=== PATIENT | female | born 1965 | race Caucasian/White ===

== ENCOUNTER 2017-05-29 05:03 | Emergency (ER) | END 2017-05-29 06:10 | disposition home or self-care (01) | DX: M79.602 Pain in left arm (principal); M79.601 Pain in right arm | CPT/HCPCS: 96372; J2270; Z7502; Z7610 ==

== ENCOUNTER 2017-05-31 19:57 | Emergency (ER) | payer OTHER ==
[~2017-05-31] VITALS: Ht 162.6 cm; Wt 67.0 kg
[~2017-05-31 19:57] MED LIST: ATOR80TA75 PO; FER325 PO; FOLI0.4T2 PO; HYDR-906 PO; TRAM50TA2 PO
[2017-05-31 20:53] VITALS: Ht 162.6 cm; Wt 67.0 kg
[2017-05-31] MEDS ORDERED: DIAZEPAM 5 MG TAB PO ONE (23:30)
[2017-05-31] MEDS ORDERED: KETOROLAC 30 MG INJ IM STA (23:30)
[2017-05-31] MEDS ORDERED: NAPR-260 PO (23:31)
--- NOTE | 2017-06-01 00:31 | ERD ---
ER Documentation Chief Complaint Date/Time DATE: 06/01/17 TIME: 00:28 Chief Complaint anuel arm pain; was here last sat; pain med not working HPI 51-year-old female complains of bilateral arm pain for the past 3 months. Patient states that she was evaluated at this facility last night and was given Imlay but it did not give her any relief. Patient states that she has an appointment to see primary care doctor tomorrow. She denies any chest pain, shortness of breath, nausea vomiting ROS All systems reviewed and are negative except as per history of present illness. Medications Home Meds Active Scripts Naproxen* (Naprosyn*) 500 Mg Tablet, 500 MG PO BID Y for PAIN AND/OR INFLAMMATION, #30 TAB Prov:BARNEY SINGLETON PA-C 05/31/17 Tramadol HCl (Tramadol HCl) 50 Mg Tablet, 50 MG PO Q4 Y for PAIN, #20 TAB Prov:RAYMUNDO TAVERAS PA-C 05/29/17 Hydrocodone/Acetaminophen (Imlay 5-325 Tablet) 1 Each Tablet, 1 TAB PO Q6H Y for PAIN, #10 TAB Prov:RAYMUNDO TAVERAS PA-C 05/29/17 Reported Medications Ferrous Sulfate* (Ferrous Sulfate*) 325 Mg Tabec, 325 MG PO BID, TAB 11/08/14 Folic Acid* (Folic Acid*) 0.4 Mg Tablet, 0.4 MG PO DAILY, TAB 11/08/14 Atorvastatin* (Atorvastatin*) 80 Mg Tablet, 80 MG PO HS 07/14/13 Allergies Allergies: Coded Allergies: No Known Allergies (Verified Allergy, Unknown, 04/10/14) PMhx/Soc Medical and Surgical Hx: pt denies Medical Hx, pt denies Surgical Hx History of Surgery: No Anesthesia Reaction: No Hx Neurological Disorder: No Hx Respiratory Disorders: No Hx Cardiac Disorders: No Hx Psychiatric Problems: No Hx Miscellaneous Medical Probl: No Hx Alcohol Use: No Hx Substance Use: No Hx Tobacco Use: No Smoking Status: Never smoker Physical Exam Vitals Vital Signs Date Time Temp Pulse Resp B/P Pulse Ox O2 Delivery O2 Flow Rate FiO2 05/31/17 20:53 99.1 65 20 142/74 99 Physical Exam Const: [] Head: Atraumatic Eyes: Normal Conjunctiva ENT: Normal External Ears, Nose and Mouth. Neck: Full range of motion..~ No meningismus. Resp: Clear to auscultation bilaterally Cardio: Regular rate and rhythm, no murmurs Abd: Soft, non tender, non distended. Normal bowel sounds Skin: No petechiae or rashes Back: No midline or flank tenderness Ext: No cyanosis, or edema. Full range of motion, Neur: Awake and alert Psych: Normal Mood and Affect Results 24 hrs Current Medications Medications (Trade) Dose Ordered Sig/Stanley Route PRN Reason Start Time Stop Time Status Last Admin Dose Admin Ketorolac Tromethamine (Toradol) 30 mg ONCE STAT IM 05/31/17 23:30 05/31/17 23:32 DC 06/01/17 00:16 Diazepam (Valium) 10 mg ONCE ONCE PO 05/31/17 23:30 05/31/17 23:32 DC 06/01/17 00:16 Procedures/MDM This is a 51-year-old female presenting to the emergency room with chronic bilateral arm pain, patient had full range of motion. Differentials include but not limited to strain, cervical radiculopathy, tendinitis. Patient is stable and neurovascular intact to be discharged home to continue to follow-up with her primary care physician tomorrow. I have given her prescription for naproxen. In the ED patient received Toradol and Valium. Departure Diagnosis: Primary Impression: Bilateral arm pain Condition: Stable Patient Instructions: Radiculopathy, Cervical, Muscle Strain, Extremity Referrals: JAM LAMAS (PCP) Additional Instructions: FOLLOW UP WITH YOUR PRIMARY CARE PHYSICIAN TOMORROW.Return to this facility if you are not improving as expected. Return to this facility if you are not improving as expected. BARNEY SINGLETON PA-C Jun 01, 2017 00:31
[2017-06-01 00:46] VITALS: BP 118/68; PULSE 69; RESP 18; TEMP 98.1
== END 2017-06-01 00:46 | disposition home or self-care (01) ==
LOC: FTE 19:57
DX: M79.602 Pain in left arm (principal)
CPT/HCPCS: 96372; J1885; Z7502; Z7610

== ENCOUNTER 2017-08-28 04:01 | Emergency (ER) | END 2017-08-28 07:20 | disposition home or self-care (01) ==

== ENCOUNTER 2018-06-24 08:51 | Day surgery (SDC) | END 2018-06-24 12:26 | disposition home or self-care (01) ==

== ENCOUNTER 2018-07-14 05:22 | Emergency (ER) | END 2018-07-14 07:00 | disposition home or self-care (01) ==

== ENCOUNTER 2019-01-29 06:36 | Emergency (ER) | payer OTHER ==
[~2019-01-29] VITALS: Ht 157.5 cm; Wt 69.7 kg
[~2019-01-29 06:36] MED LIST changes: +ACET500C5 PO; +ATOR-2 PO; -ATOR80TA75 PO; +CETI10CA PO; -FER325 PO; -FOLI0.4T2 PO; -HYDR-906 PO; +NAPR-985 PO; -TRAM50TA2 PO
[2019-01-29 06:37] VITALS: BP 149/63; PULSE 89; RESP 16; Ht 157.5 cm; Wt 69.7 kg
[2019-01-29] MEDS ORDERED: KETOROLAC 60 MG INJ IM STA (07:01)
[2019-01-29] MEDS ORDERED: ACET500C5 PO (07:05)
--- NOTE | 2019-01-29 07:10 | ERD ---
ER Documentation Chief Complaint Chief Complaint BILATERAL ARM PAIN RELATED TO PINCHED NERVES HPI This is a 53-year-old female who presents ED with complaints of bilateral arm pain related to pinched nerves. Patient states that she has had this bilateral arm pain for the past 2 years but it has been worsening over the past few months. Patient was seen by her primary care physician was given Flexeril and naproxen but states that she continues to have pain. Patient has a referral pending to an orthopedic shoes salesperson that she will be seeing in the next 2 weeks. Patient denies any weakness, lack sensation, chest pain, shortness of breath, trouble breathing, jaw pain, abdominal pain and all other symptoms. ROS All systems reviewed and are negative except as per history of present illness. Medications Home Meds Active Scripts Acetaminophen* (Tylophen*) 500 Mg Capsule, 1 CAP PO Q6H PRN for PAIN AND OR ELEVATED TEMP, #20 CAP Prov:ABHINAV GUERRERO PA-C 01/29/19 Cetirizine Hcl* (Zyrtec*) 10 Mg Capsule, 10 MG PO DAILY, #30 TAB.CHEW Prov:BARNEY SINGLETON PA-C 07/14/18 Acetaminophen* (Tylophen*) 500 Mg Capsule, 1 CAP PO Q4 PRN for PAIN AND OR ELEVATED TEMP, #30 CAP Prov:BARNEY SINGLETON PA-C 07/14/18 Naproxen* (Naprosyn*) 500 Mg Tablet, 500 MG PO BID PRN for PAIN AND/OR INFLAMMATION, #30 TAB Prov:BARNEY SINGLETON PA-C 07/14/18 Reported Medications Atorvastatin* (Atorvastatin*) 80 Mg Tablet, 80 MG PO HS 07/14/13 Allergies Allergies: Coded Allergies: No Known Allergies (Verified Allergy, Unknown, 01/29/19) PMhx/Soc History of Surgery: Yes (,Ovarian Cyst Removal) Anesthesia Reaction: No Hx Neurological Disorder: No Hx Respiratory Disorders: No Hx Cardiac Disorders: No Hx Psychiatric Problems: No Hx Miscellaneous Medical Probl: Yes (Hyperlipidemia) Hx Alcohol Use: No Hx Substance Use: No Hx Tobacco Use: No FmHx Family History: No diabetes Physical Exam Vitals Vital Signs Date Temp Pulse Resp B/P (MAP) Pulse Ox O2 O2 Flow FiO2 Time Delivery Rate 01/29/19 98.1 89 16 149/63 100 06:37 (91) Physical Exam Physical Exam Vitals signs: Reviewed by me. General: Well developed, well nourished, in no acute distress. Patient is awake and alert. Head: Normocephalic, atraumatic. Eyes: Normal conjunctiva, EOM intact grossly ENT: Pharynx is clear, Moist mucous membranes, external ears, nose and mouth normal Neck: Supple, no masses, lymphadenopathy or JVD, no cervical midline tenderness, no decreased range of motion with flexion, extension and left and right lateral rotation, Spurling's negative Respiratory: Clear to auscultation bilaterally with no wheezing, rhonchi, rales, no distress Cardiovascular: RRR, no murmurs, rubs, or gallops MSK: No edema, no unilateral swelling, 5/5 strength Upper Extremity - bilateral: Skin: No laceration, or evidence of external trauma Compartments: Soft Motor: Full active range of motion shoulder/elbow/wrist/hand Sensation: Intact shoulder/pinky/middle finger/thumb web space Bones: Nontender humerus/elbow/forearm/wrist/hand Snuffbox: Nontender Joints: No effusion Pulses/Perfusion: 2+ radial, Back: No midline tenderness. Neurologic: Alert and oriented, moving all extremities, normal speech, no focal weakness, no cerebellar signs. Normal mentation Skin: warm and dry, No rash Psych: Normal mood Results 24 hrs Current Medications Medications Dose Sig/Stanley Start Time Status Last (Trade) Ordered Route PRN Stop Time Admin Dose Reason Admin Ketorolac 60 mg ONCE STAT 01/29/19 DC 01/29/19 Tromethamine IM 07:01 01/29/19 07:08 (Toradol) 07:02 Procedures/MDM ER COURSE: The patient was given toradol The medication was well tolerated and the patient reports improvement in symptoms. The patient was stable throughout ED course. I kept the patient and/or family informed of laboratory and diagnostic imaging r esults throughout the emergency room course. The patient was promptly evaluated and a treatment plan was devised based on H&P and other data. This plan was discussed with the patient who agreed and had no further questions or concerns prior to discharge. MEDICAL DECISION MAKING: This is a 53-year-old female who presents ED with complaints of bilateral arm pain related to pinched nerves. Patient has had this pain for the past 2 years and is been worsening over the past couple months patient has a referral pending to see orthopedist. Patient was given Toradol in the emergency department today. History and physical examination other data not consistent with emergent processes including but not limited to NE, acute coronary syndrome, STEMI, fracture, subluxation, spinal cord injury, carotid / vertebral dissection, cauda equina syndrome, cord compression, infiltrative etiology, infectious etiology, epidural abscess, among others. Patient's vitals are stable and he can be managed close outpatient follow-up. Advised patient follow-up with primary care next 48 hours. Return to ED with any worsening symptoms. DISPOSITION PLAN: We discussed follow up with the patient's primary care doctor within 24 to 48 hours. Patient counseled regarding my diagnostic impression and care plan. Prior to discharge all questions answered. Pt agrees with treatment plan and understands strict return precautions. Precautionary instructions provided including instructions to return to the ER if not improving or for any worsening or changing symptoms or concerns. SPECIALIST FOLLOW UP RECOMMENDED: orthopedist Patient has been advised to follow up with primary care in 1-2 days. Disclaimer: Inadvertent spelling and grammatical errors are likely due to EHR/dictation software use and do not reflect on the overall quality of patient care. Also, please note that the electronic time recorded on this note does not necessarily reflect the actual time of the patient encounter. Blood Pressure Assessment: Patient's blood pressure was elevated (>120/80) but appears stable without evidence of hypertension emergency or urgency. The patient was counseled about the risks of hypertension and urged to pursue outpatient monitoring and therapy within a week with their primary care physician. Departure Diagnosis: Primary Impression: Chronic arm pain Laterality: bilateral Qualified Codes: M79.601 - Pain in right arm; M79.602 - Pain in left arm; G89.29 - Other chronic pain Condition: Stable Patient Instructions: Chronic Pain Additional Instructions: Patient advised to return to the ED immediately for new or worsening symptoms. Patient advised to follow up with primary care provider in the next 24-48 hours. Patient verbalized understanding and agrees with treatment plan and course of action. If patient has no primary care they may follow up with one of the community clinics listed on the following page or one of the options listed below [facility] + [address] [address] or [facility] [address] [place] [address] or [facility] [address] [place] [address] ABHINAV GUERRERO PA-C Jan 29, 2019 07:10
== END 2019-01-29 07:29 | disposition home or self-care (01) ==
LOC: FTE 06:36
DX: M79.602 Pain in left arm (principal); M79.601 Pain in right arm
CPT/HCPCS: 96372; J1885; Z7502

== ENCOUNTER 2019-03-05 03:26 | Emergency (ER) | payer OTHER ==
[~2019-03-05] VITALS: Ht 157.5 cm; Wt 68.7 kg
[2019-03-05 03:29] VITALS: BP 117/70; PULSE 79; RESP 24; Ht 157.5 cm; Wt 68.7 kg
[2019-03-05] MEDS ORDERED: KETOROLAC 60 MG INJ IM STA (03:48)
[2019-03-05] MEDS ORDERED: MELO15TA30 PO (04:24)
[2019-03-05] MEDS ORDERED: BACL10TA PO (04:24)
--- NOTE | 2019-03-05 06:06 | ERD ---
ER Documentation Chief Complaint Chief Complaint PT reports chronic arm pain HPI 53-year-old female presents to the ED for evaluation of chronic bilateral arm pain. Patient states to have recently seen in orthopedics who referred her to physical therapy for her chronic pain. Patient notes that she has not yet rece ived the authorization for physical therapy and requests pain management's time. Notes use of naproxen and Flexeril have been ineffective for her pain. She denies any recent trauma, injury, heavy lifting and notes her pain is an exacerbation of her chronic symptoms. She denies any fever, chills, shortness of breath, numbness or tingling of the extremities, loss of motor function, decreased strength. Denies alcohol, tobacco, IVDA use. ROS All systems reviewed and are negative except as per history of present illness. Medications Home Meds Active Scripts Baclofen* (Baclofen*) 10 Mg Tablet, 10 MG PO Q8, #30 TAB Prov:ROBERT JOEL PA-C 03/05/19 Meloxicam* (Mobic*) 15 Mg Tablet, 15 MG PO DAILY for arthritis, #30 TAB Prov:ROBERT JOEL 03/05/19 Acetaminophen* (Tylophen*) 500 Mg Capsule, 1 CAP PO Q6H PRN for PAIN AND OR ELEVATED TEMP, #20 CAP Prov:ABHINAV GUERRERO PA-C 01/29/19 Cetirizine Hcl* (Zyrtec*) 10 Mg Capsule, 10 MG PO DAILY, #30 TAB.CHEW Prov:BARNEY SINGLETON PA-C 07/14/18 Acetaminophen* (Tylophen*) 500 Mg Capsule, 1 CAP PO Q4 PRN for PAIN AND OR ELEVATED TEMP, #30 CAP Prov:BARNEY SINGLETON PA-C 07/14/18 Naproxen* (Naprosyn*) 500 Mg Tablet, 500 MG PO BID PRN for PAIN AND/OR INFLAMMATION, #30 TAB Prov:BARNEY SINGLETON PA-C 07/14/18 Reported Medications Atorvastatin* (Atorvastatin*) 80 Mg Tablet, 80 MG PO HS 07/14/13 Allergies Allergies: Coded Allergies: No Known Allergies (Verified Allergy, Unknown, 03/05/19) PMhx/Soc History of Surgery: Yes (,Ovarian Cyst Removal) Anesthesia Reaction: No Hx Neurological Disorder: No Hx Respiratory Disorders: No Hx Cardiac Disorders: No Hx Psychiatric Problems: No Hx Miscellaneous Medical Probl: Yes (Hyperlipidemia) Hx Alcohol Use: No Hx Substance Use: No Hx Tobacco Use: No Smoking Status: Never smoker FmHx Family History: No diabetes, No coronary disease, No other Physical Exam Vitals Vital Signs Date Temp Pulse Resp B/P (MAP) Pulse Ox O2 O2 Flow FiO2 Time Delivery Rate 03/05/19 98.3 79 24 117/70 100 03:29 (86) Physical Exam Constitutional: Well developed. Well nourished. No acute distress Head/Eyes: Atraumatic. Normocephalic. PERRL. EOMI ENT: Moist mucous membranes. Voice normal. Neck: Supple. No lymphadenopathy Cardiovascular: Regular rate and rhythm. No murmurs, rubs, or gallops. Distal pulses intact Respiratory: No respiratory distress. Normal breath sounds. No wheezes, rales, or rhonchi. Back: Full ROM. No CVA tenderness. Upper Extremity - bilateral: Skin: No laceration, or evidence of external trauma Compartments: Soft Motor: Full active range of motion shoulder/elbow/wrist/hand Sensation: Intact shoulder/pinky/middle finger/thumb web space Bones: Nontender humerus/elbow/forearm/wrist/hand Snuffbox: Nontender Joints: No effusion Pulses/Perfusion: 2+ radial, Capillary refill < 2 seconds Skin: Dry. No rashes. Warm Neurologic: Alert and oriented x3. Appropriate speech, mood and affect. Face is symmetric. Speech is normal. CN II-XII intact. Moves all extremities equally. Ambulates with a strong, steady gait Psychiatric: Normal mood. Normal affect Results 24 hrs Current Medications Medications Dose Sig/Stanley Start Time Status Last (Trade) Ordered Route PRN Stop Time Admin Dose Reason Admin Ketorolac 60 mg ONCE STAT 03/05/19 DC 03/05/19 Tromethamine IM 03:48 04:06 (Toradol) 03/05/19 03:49 Procedures/MDM MDM: 53yo F presents with chronic bilateral arm pain d/t arthritis with no trauma. VS noted, stable. Patient is well-appearing. No evidence of cellulitis or injury. Low suspicion for fracture / dislocation. Symptoms and presentation consistent with chronic pain exacerbation. No neurological deficits. Pt was reassured. Pt received Toradol while in ED with improvement in symptoms. Plan is to d/c home with supportive care, and will be prescribed Mobic and Flexeril. Pt is to follow-up with physical therapy as soon as referral approved, and advised to f/u with pain management for management of chronic pain. Differential diagnosis included but is not limited to: fracture, dislocation, subluxation, cellulitis, abscess, tendinitis, impingement syndrome. I have counseled the pt extensively regarding strict ED return precautions and need for follow-up with PCP in next 1-2 days. Pt expressed verbal understanding and agreement to treatment plan. All questions addressed and answered. Departure Diagnosis: Primary Impression: Chronic arm pain Laterality: bilateral Qualified Codes: M79.601 - Pain in right arm; M79.602 - Pain in left arm; G89.29 - Other chronic pain Additional Impression: Arthritis Condition: Stable Patient Instructions: Understanding Chronic Pain, Osteoarthritis: Managing Pain Additional Instructions: You were seen today for chronic pain and arthritis. It is recommended you follow-up with your primary care to obtain a referral to a pain specialist. You were counseled regarding stretches and conservative treatment. Continue with physical therapy as recommended by your primary doctor. Please return to the ED if symptoms worsen or fail to improve. ROBERT JOEL PA-C Mar 05, 2019 06:06
== END 2019-03-05 04:50 | disposition home or self-care (01) ==
LOC: FTE 03:26
DX: M79.601 Pain in right arm (principal); M79.602 Pain in left arm; M19.90 Unspecified osteoarthritis, unspecified site
CPT/HCPCS: 96372; J1885; Z7502